=== PATIENT | female | born 1990 | race Caucasian/White ===

== ENCOUNTER 2019-10-27 21:27 | Emergency (ER) | payer BC, SELFPAY ==
[2019-10-27 21:28] VITALS: BP 142/82; PULSE 100; RESP 17; TEMP 36.4; O2SAT 96; BMI 34.7
--- NOTE | 2019-10-27 22:25 | ED.VIS.GEN ---
History of Present Illness Chief Complaint: Lower Extremity Injury Narrative: This patient is a 28-year-old female who presents after a fall. About 3 hours ago she lost her balance while going down the steps and began to stumble. She jumped down the last 4 steps. She complains of left knee and ankle pain. She is able to ambulate but she is limping and is painful to bear weight on the left lower extremity. She did not hit her head. No loss of consciousness or amnesia. She denies injury to the other extremities or torso no chest pain abdominal pain back pain. She denies medical history or daily medications. Past Medical History - Allergies and Home Meds Allergies/Adverse Reactions: Allergies No Known Allergies Allergy (Verified 10/06/17 15:10) Primary Care Physician: Care Physician,No Primary [Primary Care Provider] - Past Medical History: None Smoking Status: Former smoker Review of Systems All systems negative except as indicated Cardiovascular: Denies: Chest pain Respiratory: Denies: Dyspnea Gastrointestinal: Denies: Abdominal pain Musculoskeletal: Reports: Extremity Pain. Denies: Back pain Neurological: Denies: Headache Physical Exam Vital Signs/Narrative: Vital Signs Temp Pulse Resp BP Pulse Ox 10/27/19 21:28 97.5 F L 100 17 142/82 H 96 General: Well nourished Head: Normocephalic Eyes: EOMI ENT: Moist mucous membranes Cardiovascular: Regular rate Respiratory: No distress Extremities: - - Patient has tenderness of the left knee she does not have focal bony tenderness no appreciable effusion she has no pain with range of motion of the hip she does have some tenderness at the lateral malleolus no bony deformity she has brisk capillary refill normal sensation and normal motor function Skin: Normal color Neurological: Alert Psychological: Normal affect Diagnostic/Tx/Re-eval Impressions Ankle X-Ray 10/27/19 22:58 IMPRESSION: No acute fracture or dislocation Electronically Signed: Adis Barker DO at 23:13 EDT Tel [phone], Service support , Knee X-Ray 10/27/19 22:58 IMPRESSION: Normal x-ray examination of the knee. Electronically Signed: Adis Barker DO at 23:16 EDT Tel [phone], Service support , 10/27/19 22:58 Ankle min 3 Views [RAD] Stat Knee 4 or More Views [RAD] Stat - Medical Decision Making X-rays of the left knee and ankle are negative for fracture. Patient was advised on supportive care such as rest ice and elevation. She understands to return for new or worsening symptoms otherwise to follow-up as an outpatient as needed and she was discharged home. ED Disposition - Plan for ED Patient: Disposition: Home or Assisted Living Diagnosis: Left knee sprain, Left ankle sprain Instructions: ED Sprain Ankle, ED Sprain Knee Referrals: Care Physician,No Primary [Primary Care Provider] -
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
[2019-10-28 00:16] VITALS: RESP 16
== END 2019-10-28 00:17 | disposition home or self-care (01) ==
PROVIDERS: Emergency Provider Emergency Medicine
DX: S83.92XA Sprain of unspecified site of left knee, initial encounter (principal); S93.402A Sprain of unspecified ligament of left ankle, initial encounter; Z87.891 Personal history of nicotine dependence; W10.9XXA Fall (on) (from) unspecified stairs and steps, initial encounter
CPT/HCPCS: 73564; 73610; 99282

== ENCOUNTER → 2020-01-11 16:53 | Outpatient (CLI) | payer SELFPAY ==
[2020-01-11 15:00] VITALS: BMI 33.0
[2020-01-14 16:28] LABS: HPV Reflexed? NOT INDICATED
== END ==
PROVIDERS: Visit Provider Nurse Practitioner Women's Health
DX: Z12.4 Encounter for screening for malignant neoplasm of cervix (principal)
CPT/HCPCS: 88175; G0145

== ENCOUNTER → 2020-11-14 10:34 | Outpatient (CLI) | payer MEDICARE, SELFPAY | PROVIDERS: Referring Provider Physician Assistant Surgical; Visit Provider Physician Assistant Surgical | DX: U07.1 COVID-19 (principal) | CPT/HCPCS: 87635; U0005; U0003 ==

== ENCOUNTER 2021-02-12 15:58 | Outpatient (CLI) | payer BC, SELFPAY ==
[2021-02-12 18:11] LABS: Chlamydia Trachomatis by PCR Negative (Negative); Neisserai gonorrhoeae by PCR Negative (Negative); Probe Check PASS; Sample Adequacy Control PASS; Specimen Processing Control PASS
== END 2021-02-12 23:59 | disposition short-term general hospital (02) ==
LOC: LABSPEC 15:59
PROVIDERS: Referring Provider Nurse Practitioner Women's Health; Visit Provider Nurse Practitioner Women's Health
DX: Z11.3 Encounter for screening for infections with a predominantly sexual mode of transmission (principal)
CPT/HCPCS: 87491; 87591

== ENCOUNTER 2021-04-10 14:37 | Emergency (ER) | payer BC, SELFPAY ==
[2021-04-10 14:38] VITALS: BP 131/87; PULSE 73; RESP 15; TEMP 35.8; O2SAT 100; BMI 32.5
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
[2021-04-10] MEDS: Naproxen 500 MG Tablet PO (15:27)
[2021-04-10] MEDS: cycloBENZAPRine HCl 10 MG Tablet PO (15:27)
== END 2021-04-10 15:48 | disposition home or self-care (01) ==
PROVIDERS: Emergency Provider Emergency Medicine; Visit Provider Emergency Medicine
DX: S16.1XXA Strain of muscle, fascia and tendon at neck level, initial encounter (principal); F17.210 Nicotine dependence, cigarettes, uncomplicated; V89.2XXA Person injured in unspecified motor-vehicle accident, traffic, initial encounter
CPT/HCPCS: 72040; 72072; 72100; 99283

== ENCOUNTER 2021-08-29 15:47 | Emergency (ER) | payer BC, SELFPAY ==
[2021-08-29 15:48] VITALS: BP 152/94; PULSE 90; RESP 16; TEMP 36.4; O2SAT 97; BMI 30.4
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
[2021-08-29] MEDS: Diphth,Pertuss(Acell),Tet Vac 0.5 ML Vial IM (16:20)
[2021-08-29 16:58] VITALS: BP 162/87; PULSE 86; RESP 15; O2SAT 98
--- NOTE | 2021-08-29 18:06 | CM.ED ---
SW Note Referral Source: Case Find Referral Reason: No Primary Care Physician (PCP) SW reviewed chart and noted that patient has no PCP. SW provided patient with list of [facility] and [facility] Physician List for reference. No other issues or concerns voiced at this time. SW remains available for any additional needs. Plan: Provided patient with PCP information [facility]
== END 2021-08-29 16:58 | disposition home or self-care (01) ==
LOC: ED 16:22
PROVIDERS: Emergency Provider Emergency Medicine; Visit Provider Emergency Medicine
DX: S61.412A Laceration without foreign body of left hand, initial encounter (principal); F17.210 Nicotine dependence, cigarettes, uncomplicated; Z23 Encounter for immunization; W26.0XXA Contact with knife, initial encounter
CPT/HCPCS: 90471; 90715; 99283

== ENCOUNTER → 2021-10-03 | Outpatient (CLI) | payer BC, SELFPAY | END | disposition home or self-care (01) | LOC: LABSPEC 14:24 | PROVIDERS: Referring Provider Nurse Practitioner Women's Health; Visit Provider Nurse Practitioner Women's Health | DX: N76.0 Acute vaginitis (principal) | CPT/HCPCS: 87070; 87205 ==

== ENCOUNTER → 2022-08-12 | Outpatient (CLI) | payer BC, SELFPAY ==
[2022-08-16 05:07] LABS: Chlamydia By Nucleic Acid AMP Negative (Negative); Gonococcus By Nucleic Acid AMP Negative (Negative)
== END | disposition home or self-care (01) ==
LOC: LABSPEC 16:42
PROVIDERS: Referring Provider Nurse Practitioner Women's Health; Visit Provider Nurse Practitioner Women's Health
DX: R10.2 Pelvic and perineal pain (principal)
CPT/HCPCS: 87070; 87205; 87491; 87591

== ENCOUNTER → 2022-08-14 | Outpatient (CLI) | payer BC, SELFPAY ==
--- NOTE | 2022-08-14 13:21 | US_ITS ---
INDICATION: Pelvic pain w/IUD EXAMINATION: Ultrasound US Pelvis Non OB Complete With Transvaginal Imaging TECHNIQUE: Transabdominal and transvaginal pelvic ultrasound was performed. Grayscale, spectral waveform, and color flow Doppler evaluation of the adnexa. COMPARISON: None FINDINGS: UTERUS: Anteverted. The uterus measures 8.9 x 5.1 x 4.2 cm. There is no uterine mass. The endometrial stripe measures 2.6 mm in AP diameter which is within normal limits. IUD in expected position. Nabothian cysts. RIGHT OVARY: 3.2 x 2.0 x 2.2 cm. Non-enlarged, normal echogenicity. Multiple follicles. There is normal arterial inflow and venous outflow present in the right ovary. LEFT OVARY: 2.6 x 3.0 x 2.1 cm. Non-enlarged, normal echogenicity. Multiple follicles. There is normal arterial inflow and venous outflow present in the left ovary. FREE FLUID: None. US/Pelvic w/ Transvaginal IMPRESSION: Nabothian cysts. IUD in expected position. Electronically Signed: Fabian Garrett MD at 23:23 EDT ,
== END | disposition home or self-care (01) ==
PROVIDERS: Referring Provider Nurse Practitioner Women's Health; Visit Provider Nurse Practitioner Women's Health
DX: R10.2 Pelvic and perineal pain (principal)
CPT/HCPCS: 76830; 76856

== ENCOUNTER → 2024-07-22 | Outpatient (CLI) | payer BC, SELFPAY ==
--- OUTSIDE RECORDS SUMMARY | 2024-07-22 09:19 | XMS RPT_ITS | CCD ---
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 Work Phone: [facility] Work Phone: 03-16-1991 trivalent poliovirus vaccine, live, oral Shirin Burgess WEB ANALYTICS DEVELOPER.[employer] Work Phone: [facility] Work Phone: Payers Date Payer Category Payer Self-pay [id number] 2024 Unknown [id number] 2021 Unknown [id number] 2021 Unknown ANTHEM BLUE CARD PPO OOS [id number] 2021-Present [phone] [address] [place] [address] PPO [id number] 2013 Unknown [id number] Unknown UNINSURED [id number] RELATED [id number] Unknown [id number] Unknown [id number] Social History Date Type Detail Facility [facility] Work Phone: Start: 08-29-2021 End: 08-12-2022 Tobacco smoking status NHIS Unknown if ever smoked [facility] Start: 1990 Sex Assigned At Female W [facility] Start: 11-06-2021 Tobacco smoking stat us MAIS Smokes tobacco daily [facility] End: 05-12-2010 History of tobacco use Cigarette Smoker [facility] Start: 11-06-2021 Cigarettes smoked current (pack per day) - Reported 0.5 [facility] Start: 11-06-2021 Tobacco use and exposure Smokeless tobacco non-user [facility] Start: 11-06-2021 Alcohol intake Current drinke r of alcohol (finding) [facility] Start: 07-04-2010 History SDOH Alcohol Comment WEEKEND DRINKER BUT NOT WHiLE [facility] Start: 11-06-2021 Tobacco Comment Vaping [facility] Start: 1990 Sex Assigned At Not on file C [facility] Start: 10-27-2021 End: 11-06-2021 Exposure to SARS-CoV-2 (event) Not sure [facility] Progress note 11-06-2021 Note Date & Type Note Facility 11-06-2021 Note HNO ID: [id number] Author: Shirin Burgess APRN.LIZY Service: ? Author Type: Nurse Practitioner Type: Progress Notes Filed: 11/06/2021 5:43 PM Note Text: [facility] Shirin Burgess APRN-LAMP WIRER [address] [place] [address] Dept Dept. Visit Date: November 06, 2021 Ms.Janelle Juan Morfin Date of : 1990 MRN/E #: [id number] Chief Complaint: Patient presents with: [facility] Groin Pain History of Present Illness Marivel Morfin is a 30 year old female. She is a [facility]. I reviewed past medical, surgical, social, and family histories today and updated chart. Allergies, chronic medications, and supplements were also reviewed. She was recently seen in an urgent care for left groin pain that was present for at least a month. She denies any acute injury that she can recall. She was given Rx for prednisone and Flexeril. She did get some relief with the steroid but will not take the muscle relaxer because it makes her too drowsy. Now she is complaining of right groin pain that started about a week and a half ago. She is denying any back pain, hip pain, popping/locking of her hips, urinary symptoms. LMP: 3-4 months ago, has Mirena (placed this year) BOWL TOPPER completes her Pap The history is provided by the patient. No multi disciplined language analyst was used. PAST MEDICAL HISTORY Diagnosis Date NEGATIVE MEDICAL HISTORY depression PAST SURGICAL HISTORY Procedure Laterality Date INSERTION OF IUD 11/24/2013 Social History Tobacco Use Smoking status: Every Day Packs/day: 0.50 Years: 4.00 Pack years: 2.00 Types: Cigarettes Last attempt to quit: 05/12/2010 Years since quittin.4 Smokeless tobacco: Never Tobacco comments: Vaping Substance Use Topics Alcohol use: Yes Comment: WEEKEND DRINKER BUT NOT WHiLE Drug use: Not Currently Comment: MARIJUANA, STOPPED [id number] Social History Social History Narrative Not on file Family History Reviewed Including Cardiac Diseases, Psychiatric Diseases, AND Substance Abuse Problem: Alcohol/Drug Relation: Father Age of Onset: (Not Specified) Problem: Arthritis Relation: Father Age of Onset: (Not Specified) Problem: Prostate Cancer Relation: Father Age of Onset: (Not Specified) Problem: Heart Relation: Maternal Grandfather Age of Onset: (Not Specified) Problem: Diabetes Relation: Paternal Grandmother Age of Onset: (Not Specified) Problem: Hypertension Relation: Paternal Grandmother Age of Onset: (Not Specified) Problem: Alcohol/Drug Relation: Paternal Grandfather Age of Onset: (Not Specified) Problem: Cancer Relation: Paternal Grandfather Age of Onset: (Not Specified) Comment: LUNG CANCER ALLERGIES No Known Allergies Current Outpatient Medications Medication Sig methylPREDNISolone (MEDROL, DOUGLAS,) 4 mg Dose-Pack As Instructed per package No current facility-administered medications for this visit. Review of Systems Review of Systems Constitutional: Negative for appetite change, chills, diaphoresis, fatigue and fever. Respiratory: Negative for chest tightness, shortness of breath and wheezing. Cardiovascular: Negative for chest pain, palpitations and leg swelling. Gastrointestinal: Negative for abdominal pain, diarrhea, nausea and vomiting. Genitourinary: Negative for dysuria, hematuria and urgency. Musculoskeletal: Positive for back pain (intermittent, none currently) and myalgias (dull, ache). Negative for arthralgias. Skin: Negative for color change and rash. Neurological: Negative for dizziness, weakness, numbness and headaches. Vital Signs BP 120/74 Pulse 90 Temp 98.2 Resp 18 Ht 5' 9 (1.75m) Wt 223 lb (101.2kg) SpO2 98% LMP 09/10/2021 BMI 32.92 kg/(m2). Physical Exam Vitals and nursing note reviewed. Constitutional: General: She is not in acute distress. Appearance: Normal appearance. Eyes: Pupils: Pupils are equal, round, and reactive to light. Cardiovascular: Rate and Rhythm: Normal rate and regular rhythm. Heart sounds: Normal heart sounds, S1 normal and S2 normal. Pulmonary: Effort: Pulmonary effort is normal. Breath sounds: Normal breath sounds. Musculoskeletal: Cervical back: Normal range of motion and neck supple. Right upper leg: Tenderness present. No swelling, edema, deformity or bony tenderness. Left upper leg: Tenderness present. No swelling, edema, deformity or bony tenderness. Legs: Comments: Mild tenderness with palpation to bilateral groin. No palpable mass. No edema or erythema. Skin: General: Skin is warm and dry. Neurological: Mental Status: She is alert and oriented to person, place, and time. Visit Diagnoses (R10.31) Right inguinal pain (primary encounter diagnosis) (R10.32) Left inguinal pain (E66.9) Obesity, Class I, BMI 30-34.9 (Z13.31) Screening for depressio (more content not included)... [facility] History of Present illness Narrative 11-06-2021 Shirin Burgess APRN.LAMP WIRER - 11/06/2021 2:29 PM EDT Note Date & Type Note Facility 11-06-2021 History of Presen t illness Narrative Images from the original note were not included. [facility] Shirin Burgess WEB ANALYTICS DEVELOPER-LAMP WIRER [address] [place] [address] Dept Dept. Visit Date: November 06, 2021 Ms.Janelle Juan Morfin Date of : 1990 MRN/E #: [id number] Chief Complaint: Patient presents with: [facility] Groin Pain History of Present Illness Marivel Morfin is a 30 year old female. She is a [facility]. I reviewed past medical, surgical, social, and family histories today and updated chart. Allergies, chronic medications, and supplements were also reviewed. She was recently seen in an urgent care for left groin pain that was present for at least a month. She denies any acute injury that she can recall. She was given Rx for prednisone and Flexeril. She did get some relief with the steroid but will not take the muscle relaxer because it makes her too drowsy. Now she is complaining of right groin pain that started about a week and a half ago. She is denying any back pain, hip pain, popping/locking of her hips, urinary symptoms. LMP: 3-4 months ago, has Mirena (placed this year) BOWL TOPPER completes her Pap The history is provided by the patient. No multi disciplined language analyst was used. PAST MEDICAL HISTORY Diagnosis Date NEGATIVE MEDICAL HISTORY depression PAST SURGICAL HISTORY Procedure Laterality Date INSERTION OF IUD 11/24/2013 Social History Tobacco Use Smoking status: Every Day Packs/day: 0.50 Years: 4.00 Pack years: 2.00 Types: Cigarettes Last attempt to quit: 05/12/2010 Years since quittin.4 Smokeless tobacco: Never Tobacco comments: Vaping Substance Use Topics Alcohol use: Yes Comment: WEEKEND DRINKER BUT NOT WHiLE Drug use: Not Currently Comment: MARIJUANA, STOPPED [id number] Social History Social History Narrative Not on file Family History Reviewed Including Cardiac Diseases, Psychiatric Diseases, & Substance Abuse Problem: Alcohol/Drug Relation: Father Age of Onset: (Not Specified) Problem: Arthritis Relation: Father Age of Onset: (Not Specified) Problem: Prostate Cancer Relation: Father Age of Onset: (Not Specified) Problem: Heart Relation: Maternal Grandfather Age of Onset: (Not Specified) Problem: Diabetes Relation: Paternal Grandmother Age of Onset: (Not Specified) Problem: Hypertension Relation: Paternal Grandmother Age of Onset: (Not Specified) Problem: Alcohol/Drug Relation: Paternal Grandfather Age of Onset: (Not Specified) Problem: Cancer Relation: Paternal Grandfather Age of Onset: (Not Specified) Comment: LUNG CANCER ALLERGIES No Known Allergies Current Outpatient Medications Medication Sig methylPREDNISolone (MEDROL, DOUGLAS,) 4 mg Dose-Pack As Instructed per package No current facility-administered medications for this visit. Review of Systems Review of Systems Constitutional: Negative for appetite change, chills, diaphoresis, fatigue and fever. Respiratory: Negative for chest tightness, shortness of breath and wheezing. Cardiovascular: Negative for chest pain, palpitations and leg swelling. Gastrointestinal: Negative for abdominal pain, diarrhea, nausea and vomiting. Genitourinary: Negative for dysuria, hematuria and urgency. Musculoskeletal: Positive for back pain (intermittent, none currently) and myalgias (dull, ache). Negative for arthralgias. Skin: Negative for color change and rash. Neurological: Negative for dizziness, weakness, numbness and headaches. Vital Signs BP 120/74 Pulse 90 Temp 98.2 Resp 18 Ht 5' 9 (1.75m) Wt 223 lb (101.2kg) SpO2 98% LMP 09/10/2021 BMI 32.92 kg/(m^2). Physical Exam Vitals and nursing note reviewed. Constitutional: General: She is not in acute distress. Appearance: Normal appearance. Eyes: Pupils: Pupils are equal, round, and reactive to light. Cardiovascular: Rate and Rhythm: Normal rate and regular rhythm. Heart sounds: Normal heart sounds, S1 normal and S2 normal. Pulmonary: Effort: Pulmonary effort is normal. Breath sounds: Normal breath sounds. Musculoskeletal: Cervical back: Normal range of motion and neck supple. Right upper leg: Tenderness present. No swelling, edema, deformity or bony tenderness. Left upper leg: Tenderness present. No swelling, edema, deformity or bony tenderness. Legs: Comments: Mild tenderness with palpation to bilateral groin. No palpable mass. No edema or erythema. Skin: General: Skin is warm and dry. Neurological: Mental Status: She is alert and oriented to person, place, and time. Visit Diagnoses (R10.31) Right inguinal pain (primary encounter diagnosis) (R10.32) Left inguinal pain (E66.9) Obesity, Class I, BMI 30-34.9 (Z13.31) Screening for depression (Z76.89) Encounter to establish care Assessment and Plan 1. Right inguinal pain - ICD9: 789.03, ICD10: R10.31 (primary diagnosis) - Suspect strain - Rest, ice as needed, and OTC NSAIDS prn after Medrol dose douglas - Limit amount of weight lifting- note provided for work 2. Left inguinal pain - ICD9: 789.04, ICD10: R10.32 - See above 3. Obesity, Class I, BMI 30-34.9 - ICD9: 278.00, ICD10: E66.9 4. Screening for depression - ICD9: V79.0, ICD10: Z13.31 - DEPRESSION SCREENING/ASSESSMENT 5. Encounter to establish care - ICD9: V65.8, ICD10: Z76.89 Discussed above plan with patient and/or caregiver. Patient and/or caregiver agreeable with above plan. Follow up visit Return for 4-6 weeks for well adult visit. Shirin Burgess APRN.CNP, signed on November 06, 2021 2:30 PM documented in this encounter [facility] Instructions 11-06-2021 Patient Instructions Note Date & Type Note Facility 11-06-2021 Instructions Shirin Burgess APRN.CNP - 11/06/2021 2:23 PM EDT Images from the original note were not included. Patient education: Groin strain (The Basics) View in Written by the doctors and editors at [employer] Please read the Disclaimer at the end of this page. What is a groin strain? -- A groin strain happens when 1 of the muscles in the inner thigh gets stretched too much or too quickly, or works too hard. This sometimes makes the muscle tear. Another term for a groin strain is a pulled groin. A groin strain can happen while exercising, such as from suddenly changing direction, or during an accident. The muscles involved in a groin strain are called the adductor muscles. The adductor muscles connect the pelvis to the thigh bone, and pull the legs toward each other. A groin strain is the most common cause of groin pain, especially in active adults. It can be mild or severe. What are the symptoms of a groin strain? -- Some people feel a pull in their groin when the strain happens. Other symptoms can include: ?Pain ?Muscle spasm or tightness ?Swelling ?Bruising ?Leg weakness, or having trouble walking or moving the legs Will I need tests? -- Probably not. Your doctor or nurse should be able to tell if you have a groin strain by learning about your symptoms and doing an exam. But some people do need tests. Depending on your symptoms, your doctor or nurse might order an imaging test such as an ultrasound or MRI scan. Imaging tests create pictures of the inside of the body. How is a groin strain treated? -- A groin strain usually gets better on its own. It can take up to a few weeks to heal completely, depending on how bad the strain is. To help with your symptoms, you can: ?Rest your groin muscles and avoid movements or activities that cause pain ?Ice the area - You can put a cold gel pack, bag of ice, or bag of frozen vegetables on the painful area every 1 to 2 hours, for 15 minutes each time. Put a thin towel between the ice (or other cold object) and your skin. Use the ice (or other cold object) for at least 6 hours after the injury. Some people find it helpful to ice up to 2 days after an injury. ?Wrap your upper thigh with an elastic bandage or other type of wrap (picture 1), or wear compression shorts - These things can help support your muscles. ?Raise the muscle above the level of your heart (if possible) - For example, if you lie down, you can put a pillow under your groin or thigh. This is helpful only for the first few days after an injury. ?Take medicine to reduce the pain and swelling - If you have a lot of pain or a severe groin strain, your doctor will prescribe a strong pain medicine. If your strain is not severe, you can take an uksq-kpu-ovycqne medicine such as acetaminophen (sample brand name: Tylenol), ibuprofen (sample brand names: Advil, Motrin), or naproxen (sample brand name: Aleve). After your pain gets better, your doctor or nurse will recommend that you gently stretch and exercise your groin muscles. Stretches and exercises can help strengthen your muscles and keep them from getting too stiff. Your doctor or nurse will show you which stretches and exercises to do. Or they will have you work with a physical therapist (exercise expert). It's important to let your groin muscle heal before you play sports or do other activities that use the muscle again. If you don't let your muscle heal, you are likely to injure it again. Can a groin strain be prevented? -- You can help prevent a groin strain by warming up your muscles before you exercise. You can do this by walking or doing another gentle activity that gets your body moving. You can also prevent injuries by doing exercises to strengthen the muscles in your legs and core, and make these muscles more flexible. If you are not sure how to do these things, a physical therapist or other exercise professional can help you. documented in this encounter [facility] Progress note 10-26-2021 Note Date & Type Note Facility 10-26-2021 Note HNO ID: [id number] Author: Sandra Perez APRN.LIZY Service: ? Author Type: Nurse Practitioner Type: Progress Notes Filed: 10/26/2021 3:44 PM Note Text: Subjective Nontoxic-appearing patient presents with left groin pain. Patient says she has had it about a month and it has not changed or gotten any better. Patient says sometimes it is there is sometimes its not. 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 Patient says it hurts worse when she is standing for a long period of time. Patient has not noticed anything that makes it worse or better. Patient denies any loss of feeling numbness or tingling in the leg. Patient denies any abnormalities associated with the pain. Patient denies any popping or clicking of the hip. Patient denies any significant history that could cause it. The history is provided by the patient. No multi disciplined language analyst was used. Review of Systems Constitutional: Negative. Skin: Negative. Objective Physical Exam Constitutional: Appearance: Normal appearance. Pulmonary: Effort: Pulmonary effort is normal. Skin: General: Skin is warm. Comments: Patient had slight pain when area was palpated. No masses or lumps palpable. No erythema or edema noted. Neurological: Mental Status: She is alert. PAST MEDICAL HISTORY Diagnosis Date NEGATIVE MEDICAL HISTORY depression PAST SURGICAL HISTORY Procedure Laterality Date INSERTION OF IUD 11/24/2013 ALLERGIES Patient has no known allergies. MEDICATIONS predniSONE (DELTASONE) 20 mg tablet Take 2 tablets by mouth once daily for 5 days. cyclobenzaprine (FLEXERIL) 10 mg tablet Take 1 tablet by mouth three times daily as needed for muscle spasm for up to 7 days. FAMILY HISTORY Problem Relation Age of Onset Alcohol/Drug Father Arthritis Father Heart Maternal Grandfather Diabetes Paternal Grandmother Hypertension Paternal Grandmother Alcohol/Drug Paternal Grandfather Cancer Paternal Grandfather LUNG CANCER Social History Tobacco Use Smoking status: Every Day Packs/day: 0.50 Years: 4.00 Pack years: 2.00 Types: Cigarettes Last attempt to quit: 05/12/2010 Years since quittin.4 Smokeless tobacco: Never Substance Use Topics Alcohol use: Yes Comment: WEEKEND DRINKER BUT NOT WHiLE Drug use: Yes Comment: MARIJUANA, STOPPED [id number] ASSESSMENT/PLAN: 1. Left inguinal pain - ICD9: 789.04, ICD10: R10.32 Placed patient on Flexeril as needed and prednisone daily for 5 days educated patient about medication and supportive therapies instructed patient Flexeril make her very tired. Patient was educated about red flag symptoms such as worsening of pain or changing of symptoms and to go to the ER right away. Was set up with primary care appointment for a little over a week from today. Patient was okay with this care plan and will report to the emergency room if anything changes. Sandra Perez APRN.[facility] History of Past illness Narrative 07-04-2010 Note Date & Type Note Facility 07-04-2010 History of Past i llness Narrative Problem Noted Date Resolved Date Supervision of normal first 07/04/2010 06/02/2013 documented as of this encounter (statuses as of 11/06/2021) [facility] History of Past illness Narrative 07-04-2010 Note Date & Type Note Facility 07-04-2010 History of Past i llness Narrative Problem Noted Date Resolved Date Supervision of normal first 07/04/2010 06/02/2013 documented as of this encounter (statuses as of 11/06/2021) [facility] Evaluation note Note Date & Type Note Facility Evaluation note No assessment information availa [facility] Work Phone: Evaluation note Note Date & Type Note Facility Evaluation note Diagnosis Onset Date Irregular menses acute IUD (intrauterine device) in place acute Encounter for routine gyneco logical examination noneactive Vaginal discharge noneactive [facility] Work Phone: Evaluation note Note Date & Type Note Facility Evaluation note Diagnosis Right inguinal pain- Primary Abdominal pain, right lower quadrant Left inguinal pain Abdominal pain, left lower quadrant Obesity, Class I, BMI 30-34.9 Obesity, unspecified Screening for depression Encounter to establish care Other reasons for seeking consultation documented in this encounter [facility] Evaluation note Note Date & Type Note Facility Evaluation note Diagnosis Onset Date Pelvic pain acute Vaginal discharge noneactive [facility] Work Phone: Chief Complaint and Reason for Visit Chief Complaint LEFT PALM LAC Chief Complaint LEFT PALM LAC Annual (BOWL TOPPER) Reason for Visit Irregular menses IUD (intrauterine device) in place Encounter for routine gynecological examination Vaginal discharge Chief Complaint check IUD, pt having pain and discharge PELVIC PAIN Reason for Visit Pelvic pain Vaginal discharge Advance Directives No Advanced Directives Records Found Advance Directive Response Recorded Date/ Time Living Will No August 29, 2021 4:10pm Power of Licensed Architect No August 29 4:10pm Summary Purpose Family History No Family History Records Found Additional Source Comments Goals (unrecognized section and content) Goals may be documented in a n alternate sectionGoals may be documented in an alternate sectionGoals may be documented in an alternate sectionGoals may be documented in an alternate section INFORMATION SOURCE (unrecogn ized section and content) DATE CREATED AUTHOR 11/10/2021 [facility] DATE CREATED AUTHOR AUTHOR'S ORGANIZ ATION 11/12/2021 [facility] DATE CREATED AUTHOR AUTHOR'S ORGANIZ ATION 04/28/2024 [facility] Source Comments (unrecognize d section and content) In the event this informatio n is protected by the Federal Confidentiality of Alcohol and Drug Abuse Patient Records regulations: The Federal rules restrict any use of the information to criminally investigate or prosecute any alcohol or drug abuse patient.[facility] the event this information is protected by the Federal Confidentiality of Alcohol and Drug Abuse Patient Records regulations: The Federal rules restrict any use of the information to criminally investigate or prosecute any alcohol or drug abuse patient.[facility] Care Teams (unrecognized sec tion and content) Web Coordinator Relationship Specialty Start Date End Date Bel Burgessfranco Connell, WEB ANALYTICS DEVELOPER.[employer] [address] [address] [place] [address] PCP - General Family Medicine 11/06/21 Web Coordinator Relationship Specialty Start Date End Date Marni Shirin Connell [employer]NALYTICS DEVELOPER.[address] [place] [address] PCP - General Family Medicine 11/06/21 Team Status: Active Member Role Status Dates No Primary Care Physician Family Provider Active No Primary Care Physician Primary Care Provider Active Team Status: Inactive Member Role Status Dates No Primary Care Physician Primary Care Provider, Refer ring Provider Active Glory Mack PHYSICAL THERAPY DIRECTOR, PHYSICAL THERAPY DIRECTOR-C Attending Provider Active Team Status: Active Member Role Status Dates No Primary Care Physician Primary Care Provider Active Glory Mack PHYSICAL THERAPY DIRECTOR, PHYSICAL THERAPY DIRECTOR-C Attending Provider, Referring Provider Active Team Status: Inactive Member Role Status Dates No Primary Care Physician Primary Care Provider Active Glory Mack PHYSICAL THERAPY DIRECTOR, PHYSICAL THERAPY DIRECTOR-C Attending Provider, Referring Provider Active Reason for Visit (unrecogniz ed section and content) Reason Comments Establish Care Groin Pain FOR RECORDS PERTAINING TO PATIENTS WHO ARE OR HAVE BEEN ENROLLED IN A CHEMICAL DEPENDENCY/SUBSTANCEABUSE PROGRAM, SOME INFORMATION MAY BE OMITTED. This clinical summary was aggregated from multiple sources. Caution should be exercised in using it in the provision of clinical care. This summary normalizes information from multiple sources, and as a consequence, information in this document may materially change the coding, format and clinical context of patient data. In addition, data may be omitted in some cases. CLINICAL DECISIONS SHOULD BE BASED ON THE PRIMARY CLINICAL RECORDS. [facility]. provides no warranty or guarantee of the accuracy or completeness of information in this document.
[2024-07-22 10:43] LABS: Absolute Lymphocyte Count 2.24 X10^3/uL (0.83-4.51); Absolute Neutrophil Count 3.5 X10^3/uL (2.0-7.7); Basophil# 0.02 X10^3/uL; Basophil% 0.3 % (0-1); Eosinophils% 11.4 % (0-5); Hematocrit 40.3 % (37-47); Hemoglobin 12.8 g/dL (12.0-15.0); Lymphocyte # 2.24 X10^3/ul (0.83-4.51); Mean Corp Hgb Conc 31.8 g/dL (32-36); Mean Corpuscular Volume 81.9 fL (81-99); Mean Platelet Vol. 11.8 fl (6.2-12.0); Monocyte# 0.48 X10^3/uL; Monocyte% 6.8 % (0-10); NRBC Flagged by Analyzer 0 % (0-5); Neutrophil # 3.46 X10^3/uL (2.7-7.7); Neutrophil % 49.4 % (47-70); Platelet Count 244 K/mm3 (150-450); RBC Distribution Width CV 13.2 % (11.6-14.6); RBC Distribution Width SD 39.4 fl (35.1-43.9); Red Blood Count 4.92 M/mm3 (4.2-5.4)
[2024-07-22 10:54] LABS: Hemoglobin A1c 5.1 % (<=5.6)
[2024-07-22 11:12] LABS: ALB/GLOB Ratio 1.3 RATIO (0.9-2.4); AST(SGOT) 23 U/L (<=31); Alanine Aminotransfer ALT/SGPT 49 U/L (<=34); Albumin, Serum 3.8 g/dL (3.5-5.0); Alkaline Phosphatase 84 U/L (35-104); Anion Gap 12 (5-15); BUN 8 mg/dL (4-19); Calcium,Total 9.3 mg/dL (7.6-11.0); Carbon Dioxide 16.2 mmol/L (21.0-32.0); Chloride 106 mmol/L (98-108); Cholesterol 181 mg/dL (<=200); Creatinine, Serum 0.73 mg/dL (0.70-1.20); EST Glomerular Filtration Rate 112 (>60); Globulin 2.9 g/dL (2.2-4.2); Glucose 90 mg/dL (70-99); High Density Lipoprotein 34 mg/dL; Low Density Lipoprotein Calc. 135 mg/dL; Potassium 3.8 mmol/L (3.3-5.1); Protein, Total 6.7 g/dL (5.9-8.4); Sodium Level 135 mmol/L (133-145); Triglycerides 64 mg/dL; Very Low Density Lipoprotein 13 mg/dL (5-40); Vitamin D,25 Hydroxy 17.9 ng/mL (30-100); cholesterol:hdl ratio screen 5.37
== END | disposition home or self-care (01) ==
PROVIDERS: PCP Family Medicine; Referring Provider Family Medicine; Visit Provider Family Medicine
DX: Z13.220 Encounter for screening for lipoid disorders (principal); R53.83 Other fatigue; Z13.1 Encounter for screening for diabetes mellitus
CPT/HCPCS: 36415; 80053; 80061; 82306; 83036; 84443; 85025